=== PATIENT | male | born 1960 | race Caucasian/White ===

== ENCOUNTER 2019-06-21 14:32 | Emergency (ER) | payer OTHER ==
[2019-06-21] MEDS ORDERED: IOVERSOL 320 100 ML VIAL IVP ONE ×2 (14:38→15:48)
--- NOTE | 2019-06-21 14:43 | ED Physician Documentation ---
PD HPI FOCAL NEURO - Stated complaint Stated Complaint: CVA - History obtained from History obtained from: Patient (59-year-old gentleman with history of hypertension and hypercholesterolemia presents with symptoms starting abruptly a few minutes before 2 PM today associated symptoms include slurred speech and tingling on the right side of the body, mostly the arm and leg, also a mild to moderate left-sided headache. He has no history of stroke. He does take aspirin, baby aspirin daily. No other anticoagulants.) Review of Systems Ten Systems: 10 systems reviewed and negative Constitutional: denies: Fever, Chills Throat: denies: Dental pain / toothache, Sore throat Cardiac: denies: Chest pain / pressure, Palpitations PD PAST MEDICAL HISTORY - Allergies Allergies/Adverse Reactions: Allergies Allergy/AdvReac Type Severity Reaction Status Date / Time No Known Drug Allergies Allergy Verified 06/21/19 15:08 PD ED PE NORMAL - Vitals Vital signs reviewed: Yes - General General: Alert and oriented X 3, No acute distress - HEENT HEENT: PERRL, EOMI - Cardiac Cardiac: RRR, No murmur - Respiratory Respiratory: No respiratory distress, Clear bilaterally - Abdomen Abdomen: Soft, Non tender - Back Back: No CVA TTP, No spinal TTP - Derm Derm: Normal color, Warm and dry - Extremities Extremities: No edema, No calf tenderness / cord - Neuro Neuro: Alert and oriented X 3, Normal speech NIHSS - Time Time: 14:35 - Level of Consciousness Level of consciousness: (0) Alert, Keenly responsive LOC Questions: (0) Answers both Q's correct LOC Commands: (0) Performs both correctly - Gaze Best Gaze: (0) Normal - Visual Visual: (0) No loss - Facial Palsy Facial Palsy: (1) Minor paralysis (On the right) - Motor Arms (both separate) Motor Arm (right): (0) No drift Motor Arm (left): (0) No drift - Motor Legs (both separate) Motor Leg (right): (0) No drift Motor Leg (left): (0) No drift - Limb Ataxia Limb Ataxia: (0) Absent - Sensory Sensory: (0) Normal (He notes tingling on the right but sensation is symmetric.) - Best Language Best Language: (0) No aphasia - Dysarthria Dysarthria: (1) [id number] dysarthria (Mildly slurred speech) - Extinction and Inattention (formally neg Extinction and inattention: (0) No abnormality - Total Score/Results Total Score/Result: 2 Results - Vitals Vitals: Vital Signs - 24 hr 06/21/19 06/21/19 06/21/19 14:33 15:25 15:30 Heart Rate 88 59 L 54 L Respiratory 18 14 13 Rate Blood Pressure 183/108 H 167/96 H 160/74 H O2 Saturation 99 98 Oxygen O2 Source Room air - Labs Labs: Laboratory Tests 06/21/19 06/21/19 06/21/19 14:30 14:30 15:16 WBC 7.7 RBC 4.91 Hgb 16.4 Hct 47.0 MCV 95.7 H MCH 33.4 H MCHC 34.9 RDW 12.7 Plt Count 275 MPV 10.1 Neut # (Auto) 4.1 Lymph # (Auto) 2.3 [place] # (Auto) 0.9 Eos # (Auto) 0.3 Baso # (Auto) 0.1 Absolute Nucleated RBC 0.00 Nucleated RBC % 0.0 PT 11.4 INR 1.0 Sodium 138 Potassium 3.8 Chloride 102 Carbon Dioxide 30 Anion Gap 6.0 BUN 13 Creatinine 1.2 Estimated GFR (MDRD) 62 L Glucose 93 Calcium 9.3 Total Bilirubin 0.7 AST 30 ALT 40 Alkaline Phosphatase 75 Total Protein 7.9 Albumin 4.2 Globulin 3.7 Albumin/Globulin Ratio 1.1 Lipase 32 - Rads (name of study) CTH/CTA Head and neck Radiology: EMP read contemporaneously (CT of the head demonstrates no obvious acute stroke. CT angiography demonstrates normal vessels in the neck, there is some intracranial atherosclerosis but no large vessel occlusion.) PD MEDICAL DECISION MAKING - ED course ED course: On return from head CT I spoke with Dr. Joseph, stroke neurologist at [facility], stroke scale is pretty low but otherwise is a pretty low risk candidate for TPA and did recommend starting that process, needs a little blood pressure control first and was administered labetalol 20 mg IVP. After discussion with the patient and his significant other and discussion of the risks and benefits he consented to TPA. Of note without specific intervention i.e. before the labetalol was given, his blood pressure was now 140/100. TPA was mixed by pharmacy. Written consent was obtained. TPA bolus given at [address] Burkett to [facility] neuro ICU at 1535 pending bed availability. [place]ras were completed. He is stable for transport to a higher level of care given the complex needs of post TPA care. - Critical Care Time(min): 40 Time Includes: Direct patient care, Review records, Reassess patient, Document care, Coordinate care, Medical consult, Family consult for tx dec Data interpretation: Labs, Pulse ox Procedures included in critical care time: Peripheral IV Departure - Departure Disposition: 02 Transfer Acute Care Hosp Clinical Impression: Cerebrovascular accident (CVA) Qualifiers: CVA mechanism: unspecified Qualified Code(s): I63.9 - Cerebral infarction, unspecified Condition: Serious
[2019-06-21] MEDS ORDERED: LABETALOL 20 MG/4 ML SYRINGE IVP ONE (14:54)
[2019-06-21] MEDS ORDERED: ALTEPLASE 81 MG in WATER FOR INJECTION,STERILE 81 ML IV STA (14:54)
[2019-06-21 14:56] LABS: BASOPHILS # (AUTO) 0.1 10^3/uL (0.0-0.1); BASOPHILS % (AUTO) 0.6 %; EOSINOPHILS # (AUTO) 0.3 10^3/uL (0.0-0.7); EOSINOPHILS % (AUTO) 3.9 %; HGB - HEMOGLOBIN 16.4 g/dL (14.0-18.0); LYMPHOCYTES # (AUTO) 2.3 10^3/uL (1.5-3.5); LYMPHOCYTES % (AUTO) 29.7 %; MEAN CORPUSCULAR HEMOGLOBIN 33.4 pg (27.0-31.0); MEAN CORPUSCULAR HGB CONC 34.9 g/dL (32.0-36.0); MEAN CORPUSCULAR VOLUME 95.7 fL (80.0-94.0); MEAN PLATELET VOLUME 10.1 fL (7.4-11.4); MONOCYTES # (AUTO) 0.9 10^3/uL (0.0-1.0); MONOCYTES % (AUTO) 12.1 %; NEUTROPHILS # (AUTO) 4.1 10^3/uL (1.5-6.6); NEUTROPHILS % (AUTO) 53.4 %; PLT - PLATELET COUNT 275 10^3/uL (130-450); RED BLOOD COUNT 4.91 10^6/uL (4.70-6.10); RED CELL DISTRIBUTION WIDTH 12.7 % (12.0-15.0); WHITE BLOOD COUNT 7.7 x10^3/uL (4.8-10.8)
[2019-06-21] MEDS ORDERED: ALTEPLASE 100 MG VIAL IV STA (15:02)
[2019-06-21 15:11] LABS: ALBUMIN 4.2 g/dL (3.2-5.5); ALBUMIN/GLOBULIN RATIO 1.1 (1.0-2.2); BILIRUBIN,TOTAL 0.7 mg/dL (0.2-1.0); CREATININE 1.2 mg/dL (0.6-1.2); TOTAL PROTEIN 7.9 g/dL (6.7-8.2)
--- NOTE | 2019-06-21 15:25 | CT Report ---
Reason: stroke Procedure Date: 06/21/2019 Accession Number: [id number] / [id number] Procedure: CT - Head W/O Stroke Protocol CPT Code: Preliminary Report FULL RESULT: EXAM: CT HEAD EXAM DATE: 06/21/2019 02:50 PM. CLINICAL HISTORY: Stroke. COMPARISON: Accompanying CT angiogram head and neck. TECHNIQUE: Multiaxial CT images were obtained from the foramen magnum to the vertex. Reformats: Sagittal and coronal. IV contrast: None. In accordance with CT protocol optimization, one or more of the following dose reduction techniques were utilized for this exam: automated exposure control, adjustment of mA and/or KV based on patient size, or use of iterative reconstructive technique. Findings: Relevant images are indicated (image number, series number). There is no hemorrhage, mass or midline shift. Minimal brain atrophy present. Mild/moderate scattered dense white matter disease appears present. No acute arterial thrombosis of the major arteries. Basal cisterns are patent. Paranasal sinuses, mastoid air cells are clear. Skull base intact, calvarium intact. Impressions: 1. No acute findings. ASPECTS Score equals 10. 2. Mild/moderate scattered dense white matter disease. 3. Minimal brain atrophy. RADIA The critical test notification system was initiated by Dr. Lalito Parrish at 03:19 PM on 06/21/2019. The above critical test findings were discussed with Juan Velez by Dr. Lalito Parrish at 03:22 PM on 06/21/2019.
[2019-06-21 15:36] LABS: PT - PROTHROMBIN TIME 11.4 secs (9.9-12.6)
--- NOTE | 2019-06-21 15:37 | CT Report ---
Reason: R facial droop, slurred speech Procedure Date: 06/21/2019 Accession Number: [id number] / [id number] Procedure: CT - ANGIO NECK W CPT Code: Final Report FULL RESULT: EXAM: CT ANGIOGRAM HEAD AND NECK. CT SCAN HEAD WITH CONTRAST. EXAM DATE: 06/21/2019 02:54 PM. CLINICAL HISTORY: 59-year-old with right-sided facial droop and slurred speech. Evaluate for intracranial pathology or vascular pathology. COMPARISON: Noncontrast CT head 06/21/2019. TECHNIQUE: Routine axial helical CTA imaging was performed from the aortic arch through the [place]. Routine axial CT imaging of the head was performed following contrast administration. Reconstructions: Routine multiplanar 3D MIP reconstructions. IV contrast: Optiray 320 80 mL. NASCET Criteria are used for stenosis measurements. In accordance with CT protocol optimization, one or more of the following dose reduction techniques were utilized for this exam: automated exposure control, adjustment of mA and/or KV based on patient size, or use of iterative reconstructive technique. FINDINGS: CT SCAN HEAD: Parenchyma: No acute parenchymal hemorrhage, mass, or midline shift. There is mild to moderate bilateral areas of white matter hypoattenuation seen that are age-indeterminate, but appear chronic. There is no convincing CT evidence of acute infarct. No abnormal postcontrast enhancement. Extra-axial Spaces: Normal for age. No subdural or epidural collections identified. Ventricles: Normal in size and position. Sinuses and Orbits: Mild mucosal thickening in the maxillary sinuses and the left sphenoid sinus. Mastoid air cells and middle ear cavities appear clear. Bones: No evidence of fracture or calvarial defect. Other: Vascular calcifications of the cavernous ICA segments. CT ANGIOGRAM HEAD AND NECK: There is atherosclerotic plaque involving the aortic arch with no significant stenosis. Normal three vessel takeoff. The visualized subclavian arteries appear normal. RIGHT: Common Carotid Artery: Patent without significant stenosis. Carotid Bulb: There is minimal atherosclerotic plaque at the carotid bifurcation. Stenosis at the bifurcation by NASCET criteria: No significant stenosis. Internal Carotid Artery: Tortuosity of the cervical ICA with no high-grade stenosis or definite dissection seen. There is atherosclerotic plaque involving the cavernous ICA segment with no high-grade stenosis seen. No evidence of aneurysm along the intracranial ICA. External Carotid Artery: Unremarkable. Vertebral Artery: Patent without significant stenosis. No evidence of dissection. No aneurysm. Anterior Cerebral Artery: Patent without significant stenosis, aneurysm, or vascular malformation. Middle Cerebral Artery: Patent without significant stenosis, aneurysm, or vascular malformation. Posterior Cerebral Artery: There is mild stenosis of the proximal P1 segment of the right A[employer]AUT[employer] ENGINEERING TEACHER (series 2, image 126). Distal A[employer]ING TE[employer]ER branches are patent. No aneurysm. Posterior Communicating Artery: Patent. No aneurysm. LEFT: Common Carotid Artery: Patent without significant stenosis. Carotid Bulb: There is minimal atherosclerotic plaque at the carotid bifurcation. Stenosis at the bifurcation by NASCET criteria: No significant stenosis. Internal Carotid Artery: Tortuosity of the cervical ICA with no high-grade stenosis or definite dissection seen. There is atherosclerotic plaque above the cavernous ICA segment with no high-grade stenosis seen. No evidence of aneurysm along the intracranial ICA. External Carotid Artery: Unremarkable. Vertebral Artery: Patent without significant stenosis. No evidence of dissection. No aneurysm. Anterior Cerebral Artery: Patent without significant stenosis, aneurysm, or vascular malformation. Middle Cerebral Artery: Patent without significant stenosis, aneurysm, or vascular malformation. Posterior Cerebral Artery: The P1 and P2 segments appear normal. There is a 4 mm segment of moderate to severe stenosis of the superior P3 segment of the left [employer]INEERING TEACHER. There is a 4 mm segment of moderate stenosis of the distal inferior P3 segment of the left [employer] ENGINEERING TEACHER. No aneurysm. Posterior Communicating Artery: Patent. No aneurysm. CENTRAL: Anterior Communicating Artery: Patent. No aneurysm. Basilar Artery: The basilar artery is patent. There is 2 mm segment of moderate to severe stenosis of the origin of the right superior cerebellar artery. There is focal moderate stenosis of the origin of the left superior cerebellar artery. No aneurysm. DURAL VENOUS SINUSES AND MAJOR CENTRAL VEINS: Patent. OTHER: Punctate calcification seen within the tonsillar crypts. Otherwise, the visualized pharynx and larynx appear normal. The major salivary glands appear normal. The visualized thyroid appears normal. No cervical lymphadenopathy. No necrotic lymph nodes. Soft tissues of the neck appear normal. Dependent atelectatic changes. Postsurgical changes C5-C6 posterior spinal instrumented fusion and anterior cervical disk fusion with C5-C6 diskectomy with interbody fusion graft placement. No acute fracture or traumatic subluxation. Multilevel degenerative changes. No suspicious osseous lesion seen. IMPRESSION: CT SCAN HEAD: 1. No definite acute infarct seen. If there is clinical concern for acute stroke or if symptoms persist an MR brain could be considered to evaluate for small or subtle pathology. 2. No acute intracranial hemorrhage, mass, hydrocephalus, or midline shift. 3. Mild to moderate white matter changes that appear chronic suggesting potential sequela of chronic small vessel ischemic disease. CT ANGIOGRAM NECK: 1. Normal CTA of the extracranial circulation. No significant atherosclerotic change or stenosis. No dissection. CT ANGIOGRAM HEAD: 1. No large vessel occlusion. 2. There is evidence of intracranial atherosclerosis with areas of high-grade stenosis involving the origins of the right superior cerebral artery, left superior cerebellar artery, P1 segment of the right [employer] ENGINEERING TEACHER, and P3 segments of the left [employer] ENGINEERING TEACHER, as detailed above. 3. No aneurysm. RADIA The call report notification system was initiated by Dr. Blane Jeff at 03:35 PM on 06/21/2019. The above call report findings were discussed with Juan Velez by Dr. Blane Jeff at 03:42 PM on 06/21/2019.
--- NOTE | 2019-06-21 15:37 | CT Report ---
Reason: R facial droop, slurred speech Procedure Date: 06/21/2019 Accession Number: [id number] / [id number] Procedure: CT - ANGIO HEAD W/WO CPT Code: Final Report FULL RESULT: EXAM: CT ANGIOGRAM HEAD AND NECK. CT SCAN HEAD WITH CONTRAST. EXAM DATE: 06/21/2019 02:54 PM. CLINICAL HISTORY: 59-year-old with right-sided facial droop and slurred speech. Evaluate for intracranial pathology or vascular pathology. COMPARISON: Noncontrast CT head 06/21/2019. TECHNIQUE: Routine axial helical CTA imaging was performed from the aortic arch through the [place] of [place]. Routine axial CT imaging of the head was performed following contrast administration. Reconstructions: Routine multiplanar 3D MIP reconstructions. IV contrast: Optiray 320 80 mL. NASCET Criteria are used for stenosis measurements. In accordance with CT protocol optimization, one or more of the following dose reduction techniques were utilized for this exam: automated exposure control, adjustment of mA and/or KV based on patient size, or use of iterative reconstructive technique. FINDINGS: CT SCAN HEAD: Parenchyma: No acute parenchymal hemorrhage, mass, or midline shift. There is mild to moderate bilateral areas of white matter hypoattenuation seen that are age-indeterminate, but appear chronic. There is no convincing CT evidence of acute infarct. No abnormal postcontrast enhancement. Extra-axial Spaces: Normal for age. No subdural or epidural collections identified. Ventricles: Normal in size and position. Sinuses and Orbits: Mild mucosal thickening in the maxillary sinuses and the left sphenoid sinus. Mastoid air cells and middle ear cavities appear clear. Bones: No evidence of fracture or calvarial defect. Other: Vascular calcifications of the cavernous ICA segments. CT ANGIOGRAM HEAD AND NECK: There is atherosclerotic plaque involving the aortic arch with no significant stenosis. Normal three vessel takeoff. The visualized subclavian arteries appear normal. RIGHT: Common Carotid Artery: Patent without significant stenosis. Carotid Bulb: There is minimal atherosclerotic plaque at the carotid bifurcation. Stenosis at the bifurcation by NASCET criteria: No significant stenosis. Internal Carotid Artery: Tortuosity of the cervical ICA with no high-grade stenosis or definite dissection seen. There is atherosclerotic plaque involving the cavernous ICA segment with no high-grade stenosis seen. No evidence of aneurysm along the intracranial ICA. External Carotid Artery: Unremarkable. Vertebral Artery: Patent without significant stenosis. No evidence of dissection. No aneurysm. Anterior Cerebral Artery: Patent without significant stenosis, aneurysm, or vascular malformation. Middle Cerebral Artery: Patent without significant stenosis, aneurysm, or vascular malformation. Posterior Cerebral Artery: There is mild stenosis of the proximal P1 segment of the right PILL PACKER (series 2, image 126). Distal PILL PACKER branches are patent. No aneurysm. Posterior Communicating Artery: Patent. No aneurysm. LEFT: Common Carotid Artery: Patent without significant stenosis. Carotid Bulb: There is minimal atherosclerotic plaque at the carotid bifurcation. Stenosis at the bifurcation by NASCET criteria: No significant stenosis. Internal Carotid Artery: Tortuosity of the cervical ICA with no high-grade stenosis or definite dissection seen. There is atherosclerotic plaque above the cavernous ICA segment with no high-grade stenosis seen. No evidence of aneurysm along the intracranial ICA. External Carotid Artery: Unremarkable. Vertebral Artery: Patent without significant stenosis. No evidence of dissection. No aneurysm. Anterior Cerebral Artery: Patent without significant stenosis, aneurysm, or vascular malformation. Middle Cerebral Artery: Patent without significant stenosis, aneurysm, or vascular malformation. Posterior Cerebral Artery: The P1 and P2 segments appear normal. There is a 4 mm segment of moderate to severe stenosis of the superior P3 segment of the left PILL PACKER. There is a 4 mm segment of moderate stenosis of the distal inferior P3 segment of the left PILL PACKER. No aneurysm. Posterior Communicating Artery: Patent. No aneurysm. CENTRAL: Anterior Communicating Artery: Patent. No aneurysm. Basilar Artery: The basilar artery is patent. There is 2 mm segment of moderate to severe stenosis of the origin of the right superior cerebellar artery. There is focal moderate stenosis of the origin of the left superior cerebellar artery. No aneurysm. DURAL VENOUS SINUSES AND MAJOR CENTRAL VEINS: Patent. OTHER: Punctate calcification seen within the tonsillar crypts. Otherwise, the visualized pharynx and larynx appear normal. The major salivary glands appear normal. The visualized thyroid appears normal. No cervical lymphadenopathy. No necrotic lymph nodes. Soft tissues of the neck appear normal. Dependent atelectatic changes. Postsurgical changes C5-C6 posterior spinal instrumented fusion and anterior cervical disk fusion with C5-C6 diskectomy with interbody fusion graft placement. No acute fracture or traumatic subluxation. Multilevel degenerative changes. No suspicious osseous lesion seen. IMPRESSION: CT SCAN HEAD: 1. No definite acute infarct seen. If there is clinical concern for acute stroke or if symptoms persist an MR brain could be considered to evaluate for small or subtle pathology. 2. No acute intracranial hemorrhage, mass, hydrocephalus, or midline shift. 3. Mild to moderate white matter changes that appear chronic suggesting potential sequela of chronic small vessel ischemic disease. CT ANGIOGRAM NECK: 1. Normal CTA of the extracranial circulation. No significant atherosclerotic change or stenosis. No dissection. CT ANGIOGRAM HEAD: 1. No large vessel occlusion. 2. There is evidence of intracranial atherosclerosis with areas of high-grade stenosis involving the origins of the right superior cerebral artery, left superior cerebellar artery, P1 segment of the right PILL PACKER, and P3 segments of the left PILL PACKER, as detailed above. 3. No aneurysm. RADIA The call report notification system was initiated by Dr. Blane Jeff at 03:35 PM on 06/21/2019. The above call report findings were discussed with Juan Velez by Dr. Blane Jeff at 03:42 PM on 06/21/2019.
[2019-06-21 15:38] LABS: CALCIUM 9.3 mg/dL (8.5-10.3)
[2019-06-21 17:15] VITALS: BP 153/95
== END 2019-06-21 17:02 | disposition short-term general hospital (02) ==
LOC: ED 14:32
DX: I63.9 Cerebral infarction, unspecified (principal); I10 Essential (primary) hypertension; E78.00 Pure hypercholesterolemia, unspecified; Z79.82 Long term (current) use of aspirin
CPT/HCPCS: 36415; 37195; 70496; 70498; 80053; 83690; 85025; 85610; 96365; 99285; 99291; J2997; Q9967; 70450

== ENCOUNTER 2019-06-25 21:39 | Outpatient (CLI) | payer OTHER | END 2019-06-25 21:40 | disposition critical access hospital (66) | LOC: EMS 21:39 | PROVIDERS: ATTEND Surgery | DX: G81.91 Hemiplegia, unspecified affecting right dominant side (principal); R53.83 Other fatigue; R47.81 Slurred speech | CPT/HCPCS: A0425; A0427 ==

== ENCOUNTER 2019-06-25 21:59 | Observation (INO) | payer OTHER ==
[2019-06-25] MEDS ORDERED: SODIUM CHLORIDE 0.9% 1,000 ML IV ONE ×2 (22:23→23:13)
--- NOTE | 2019-06-25 22:27 | ED Physician Documentation ---
PD HPI FOCAL NEURO - Stated complaint Stated Complaint: R SIDE NUMBNESS - Chief complaint Chief Complaint: Neuro - History obtained from History obtained from: Patient, Family, EMS - History of Present Illness Timing - onset: Today Timing - duration: Minutes Timing - details: Abrupt onset, Now resolved Severity of deficit: Moderate Weakness: Hand, Leg, Foot, Right Numbness: Hand, Leg, Foot, Right Contributing factors: positive: Other (not drinking much fluids) Baseline status: positive: A&OX3, ambulatory, indep Similar symptoms before: Diagnosis (CVA with stuttering lacunar infarct) Recently seen: Emergency Dept, Transferred - Additional information Additional information: 59-year-old male who was recently transferred from [facility] to [facility] for CVA and received TPA has been discharged with a diagnosis of transient lacunar. Tonight he was eating dinner when he began to have some trouble holding his fork and he then got up from the table went into his room and laid down and he developed numbness and tingling to his right foot and hand as well as clumsiness and weakness. He had some difficulty with speech as well these are all the similar symptoms she had previously with his lacunar infarct.He has resolved his symptoms in route to the hospital. He states that today he did not take it easy went and did his usual things after he got back from the hospital. He states that this morning he was walking better than when he left the hospital. He indicates he feels nearly completely recovered at the time of initial evaluation. He has had some dysarthria that has been present since the episode and seem worse if he is laying flat. He acknowledges that he does not drink enough fluids and he has had afib once from dehydration. Review of Systems Constitutional: denies: Fever, Chills, Myalgias Eyes: denies: Decreased vision Ears: denies: Ear pain Nose: denies: Rhinorrhea / runny nose, Congestion Throat: denies: Sore throat Cardiac: denies: Chest pain / pressure, Palpitations Respiratory: denies: Dyspnea, Cough GI: denies: Abdominal Pain, Nausea, Vomiting : denies: Dysuria Skin: denies: Rash Musculoskeletal: denies: Neck pain, Back pain, Extremity pain Neurologic: reports: Focal weakness, Numbness, Difficulty speaking. denies: Generalized weakness, Confused, Altered mental status, Headache, Head injury, LOC PD PAST MEDICAL HISTORY - Past Medical History Past Medical History: Yes Cardiovascular: Hypertension, High cholesterol Neuro: Other Other Past Medical History: stuttering lacunar syndrome - Past Surgical History Past Surgical History: Yes Ortho: Spine surgery, Other - Present Medications Home Medications: Ambulatory Orders Medication Instructions Recorded Confirmed Aspirin 1 tab 06/25/19 Atorvastatin [Lipitor] 40 mg 06/25/19 Clopidogrel [Plavix] 1 tab 06/25/19 - Allergies Allergies/Adverse Reactions: Allergies Allergy/AdvReac Type Severity Reaction Status Date / Time No Known Drug Allergies Allergy Verified 06/21/19 15:08 - Social History Does the pt smoke?: No Smoking Status: Never smoker PD ED PE NORMAL - Vitals Vital signs reviewed: Yes (hpyertensive moderate) - General General: Alert and oriented X 3, No acute distress, Well developed/nourished - HEENT HEENT: Atraumatic, PERRL, EOMI - Neck Neck: Supple, no meningeal sign, No bony TTP - Cardiac Cardiac: RRR, No murmur - Respiratory Respiratory: No respiratory distress, Clear bilaterally - Abdomen Abdomen: Normal bowel sounds, Soft, Non tender, Non distended, No organomegaly - Back Back: No CVA TTP, No spinal TTP - Derm Derm: Normal color, Warm and dry, No rash - Extremities Extremities: No deformity, No edema - Neuro Neuro: Alert and oriented X 3, cotton weigher 2-12 intact, No motor deficit, No sensory deficit, Other (speech is mildly dysarthric) Eye Opening: Spontaneous Motor: Obeys Commands Verbal: Oriented GCS Score: 15 - Psych Psych: Normal mood, Normal affect NIHSS - Level of Consciousness Level of consciousness: (0) Alert, Keenly responsive LOC Questions: (0) Answers both Q's correct LOC Commands: (0) Performs both correctly - Gaze Best Gaze: (0) Normal - Visual Visual: (0) No loss - Facial Palsy Facial Palsy: (0) Normal, symmetrical movement - Motor Arms (both separate) Motor Arm (right): (0) No drift Motor Arm (left): (0) No drift - Motor Legs (both separate) Motor Leg (right): (0) No drift Motor Leg (left): (0) No drift - Limb Ataxia Limb Ataxia: (0) Absent - Sensory Sensory: (0) Normal - Best Language Best Language: (0) No aphasia - Dysarthria Dysarthria: (1) [id number] dysarthria - Extinction and Inattention (formally neg Extinction and inattention: (0) No abnormality - Total Score/Results Total Score/Result: 1 Results - Vitals Vitals: Vital Signs - 24 hr 06/25/19 06/26/19 22:00 00:22 Temperature 36.6 C Heart Rate 57 L 58 L Respiratory 18 21 Rate Blood Pressure 171/99 H 152/87 H O2 Saturation 96 96 Oxygen O2 Source Room air - EKG (time done) 2205 Rate: Rate (enter#) (56) Rhythm: NSR [place]: LAD (borderline) Intervals: Prolonged CA (borderline) Ischemia: Other (T's are almost flat) Compare to prior EKG: Old EKG unavailable Computer interpretation: Agree with computer - Labs Labs: Laboratory Tests 06/25/19 06/25/19 06/25/19 22:56 23:07 23:07 WBC 11.0 H RBC 4.75 Hgb 15.6 Hct 44.8 MCV 94.3 H MCH 32.8 H MCHC 34.8 RDW 12.4 Plt Count 241 MPV 9.6 Neut # (Auto) 8.6 H Lymph # (Auto) 1.2 L Logan # (Auto) 0.8 Eos # (Auto) 0.3 Baso # (Auto) 0.0 Absolute Nucleated RBC 0.00 Nucleated RBC % 0.0 PT 11.9 INR 1.0 Sodium Potassium Chloride Carbon Dioxide Anion Gap BUN Creatinine Estimated GFR (MDRD) Glucose Calcium Total Bilirubin AST ALT Alkaline Phosphatase Total Protein Albumin Globulin Albumin/Globulin Ratio Lipase Urine Color YELLOW Urine Clarity CLEAR Urine pH 6.0 Ur Specific [place] 1.020 Urine Protein NEGATIVE Urine Glucose (UA) NEGATIVE Urine Ketones NEGATIVE Urine Occult Blood TRACE-INTA Urine Nitrite NEGATIVE Urine Bilirubin NEGATIVE Urine Urobilinogen 0.2 (NORMAL) Ur Leukocyte Esterase NEGATIVE Ur Microscopic Review NOT INDICATED Urine Culture Comments NOT INDICATED 06/25/19 23:07 WBC RBC Hgb Hct MCV MCH MCHC RDW Plt Count MPV Neut # (Auto) Lymph # (Auto) Logan # (Auto) Eos # (Auto) Baso # (Auto) Absolute Nucleated RBC Nucleated RBC % PT INR Sodium 139 Potassium 3.8 Chloride 106 Carbon Dioxide 26 Anion Gap 7.0 BUN 23 H Creatinine 1.1 Estimated GFR (MDRD) 68 L Glucose 121 H Calcium 9.4 Total Bilirubin 0.7 AST 46 H ALT 51 Alkaline Phosphatase 65 Total Protein 7.5 Albumin 4.1 Globulin 3.4 Albumin/Globulin Ratio 1.2 Lipase 33 Urine Color Urine Clarity Urine pH Ur Specific [place] Urine Protein Urine Glucose (UA) Urine Ketones Urine Occult Blood Urine Nitrite Urine Bilirubin Urine Urobilinogen Ur Leukocyte Esterase Ur Microscopic Review Urine Culture Comments - Rads (name of study) CT head w/o Radiology: Prelim report reviewed (Impression: No acute or focal intracranial abnormality. Moderate includes ataxia who is older you of your neck), EMP read indepedently, See rad report Procedures - IVC sono (time) 2220 Bedside IVC sono: IVC measures (cm) (0.93), Dehydration (est 1-2 liter deficit) 2355 Bedside IVC sono: IVC measures (cm) (1.22), Dehydration (est 1 liter deficit) PD MEDICAL DECISION MAKING - ED course Complexity details: reviewed old records, reviewed results, re-evaluated patient, considered differential, d/w patient, d/w family ED course: 59-year-old male with stuttering lacunar infarct has developed symptoms again this evening. He had symptoms under the circumstance of eating dinner and he was found to be dehydrated on interrogation of the inferior vena cava. Here in the emerge department his symptoms have resolved and we have hydrated him with 2 L of saline. His case was discussed with the on-call neurologist Nguyen Rose at [facility] and she recommends admission to observation overnight and she indicates that she would not make any significant changes to the patient's medications and she would encourage hydration. Departure - Departure Disposition: ED Place in Observation Clinical Impression: TIA (transient ischemic attack) Condition: Stable Discharge Date/Time: 06/26/19 02:41
--- NOTE | 2019-06-25 22:53 | CT Report ---
Reason: transient right sided weakness Procedure Date: 06/25/2019 Accession Number: [id number] / [id number] Procedure: CT - HEAD WO CPT Code: Final Report FULL RESULT: EXAM: CT HEAD EXAM DATE: 06/25/2019 10:41 PM. CLINICAL HISTORY: Transient right sided weakness. COMPARISON: CT ANGIOGRAM HEAD NECK ACUTE STROKE 06/23/2019 9:39 AM MRI BRAIN WO CONTRAST 06/23/2019 8:51 AM. TECHNIQUE: Multiaxial CT images were obtained from the foramen magnum to the vertex. Reformats: Sagittal and coronal. IV contrast: None. In accordance with CT protocol optimization, one or more of the following dose reduction techniques were utilized for this exam: automated exposure control, adjustment of mA and/or KV based on patient size, or use of iterative reconstructive technique. FINDINGS: Parenchyma: No intraparenchymal hemorrhage. No evidence of mass, midline shift, or CT findings of infarction. Shah-white differentiation is distinct. Extraaxial Spaces: Normal for age. No subdural or epidural collections identified. Ventricles: Normal in size and position. Sinuses and Orbits: Imaged paranasal sinuses, orbits, and mastoids show no significant abnormality. Bones: No evidence of fracture or calvarial defect. Other: None. IMPRESSION: No acute or focal intracranial abnormality. RADIA
[2019-06-25 23:18] LABS: BASOPHILS % (AUTO) 0.3 %; EOSINOPHILS # (AUTO) 0.3 10^3/uL (0.0-0.7); EOSINOPHILS % (AUTO) 2.6 %; HGB - HEMOGLOBIN 15.6 g/dL (14.0-18.0); LYMPHOCYTES # (AUTO) 1.2 10^3/uL (1.5-3.5); MEAN CORPUSCULAR HEMOGLOBIN 32.8 pg (27.0-31.0); MEAN CORPUSCULAR HGB CONC 34.8 g/dL (32.0-36.0); MEAN CORPUSCULAR VOLUME 94.3 fL (80.0-94.0); MEAN PLATELET VOLUME 9.6 fL (7.4-11.4); MONOCYTES # (AUTO) 0.8 10^3/uL (0.0-1.0); MONOCYTES % (AUTO) 7.7 %; NEUTROPHILS # (AUTO) 8.6 10^3/uL (1.5-6.6); NEUTROPHILS % (AUTO) 77.9 %; PLT - PLATELET COUNT 241 10^3/uL (130-450); RED BLOOD COUNT 4.75 10^6/uL (4.70-6.10); RED CELL DISTRIBUTION WIDTH 12.4 % (12.0-15.0)
[2019-06-25 23:24] LABS: PT - PROTHROMBIN TIME 11.9 secs (9.9-12.6)
[2019-06-25 23:24] LABS: BILIRUBIN,URINE NEGATIVE (NEGATIVE); GLUCOSE, URINE (UA) NEGATIVE (NEGATIVE); KETONES,URINE (UA) NEGATIVE (NEGATIVE); LEUKOCYTE ESTERASE, URINE NEGATIVE (NEGATIVE); NITRITE,URINE NEGATIVE (NEGATIVE); OCCULT BLOOD,URINE TRACE-INTA (NEGATIVE); PROTEIN,URINE NEGATIVE (NEGATIVE); UROBILINOGEN,URINE 0.2 (NORMAL) E.U./dL (NORMAL)
[2019-06-25 23:25] LABS: CLARITY,URINE CLEAR (CLEAR)
[2019-06-25 23:26] LABS: ALBUMIN 4.1 g/dL (3.2-5.5); ALBUMIN/GLOBULIN RATIO 1.2 (1.0-2.2); BILIRUBIN,TOTAL 0.7 mg/dL (0.2-1.0); CALCIUM 9.4 mg/dL (8.5-10.3); CREATININE 1.1 mg/dL (0.6-1.2); TOTAL PROTEIN 7.5 g/dL (6.7-8.2)
[2019-06-26] MEDS ORDERED: SODIUM CHLORIDE FLUSH 0.9% 10 ML SYRINGE IVP PRN (02:15)
--- NOTE | 2019-06-26 02:18 | HISTORY & PHYSICAL EXAMINATION ---
Chief Complaint - Chief Complaint Chief Complaint: right sided weakness and numbness History of Present Illness - Admitted From Admitted From:: [facility] - History Obtained From Records Reviewed: yes History obtained from: patient and significant other - History of Present Illness HPI Comment/Other: Patient is a 59 y/o male with supposed Hx of paroxysmal Atrial fibrillation, hypertension and hyperlipidemia who presented to the ED with complain of right- sided numbness, weakness and dysarthria. This started around 7pm on 06/25/19 while they were having dinner. Just prior to dinner he noticed he was wobbly on his feet. Then at dinner he was having some difficulty holding his fork. He decided to go to bed after dinner and that was when he noticed the numbness and weakness was more prominent. Then he was having difficulty speaking. He reports getting emotional at this point because he felt helpless and like he was going to . His significant other called EMS. By the time EMS arrived his symptoms had improved somewhat. By the time the ambulance arrived the hospital he was close to his baseline. He was able to stand/ bear weight and walk un-aided. However he was slightly wobbly on his feet. He had presented to the ED on 06/21/19 with similar symptoms. At that time his symptoms had persisted for over an hour. After discussing with [facility] neurology, he was administered TPA and flown to [facility]. He was admitted to the ICU at [facility]. The following day he was down-graded and transferred out of the ICU. He reports experiencing two episodes of similar symptoms as described above while admitted at [facility]. He underwent 2 brain MRI's, 2 CTA of the head, a CTA neck and a TTE which showed a LVEF of 58%, normal left and right ventricular size and function. The images were largely unremarkable for an acute stroke, except for moderate dense scattered white matter disease most likely related to chronic small vessel ischemic disease. 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 Plan was for follow up with his PCP in 1 week and neurology in 2-3 weeks. At bedside he has slight residual weakness on the right side and has slight difficulty with sflucd-lk-bdac test on the right. However he adds that this is close to his baseline upon discharge from [facility]. He denied chest pain, dyspnea, abd pain, n/v/d, fever chills, headache, dizziness or double vision. Dr Nguyen Rose (neurologist) at [facility] was consulted by the ED physician and she advised observing the patient. He is being admitted for observation based on neurology's recommendation. History - Past Medical History Cardiovascular: reports: Hypertension, High cholesterol, Atrial fibrillation (Paroxysmal) Neuro: reports: Other Other Past Medical History: stuttering lacunar syndrome - Past Surgical History Ortho: reports: Spine surgery, Other - Family & Social History Family History Comment/Other: mother: CVA, hypertension. father: CHF, hypertension Living arrangement: At home Social History Notes: He denies tobacco or alcohol use. He uses marijuana. - POLST Patient has POLST: No POLST Status: Full Code Meds/Allgy - Home Medications Home Medications: Ambulatory Orders Medication Instructions Recorded Confirmed Aspirin 1 tab 06/25/19 Atorvastatin [Lipitor] 40 mg 06/25/19 Clopidogrel [Plavix] 1 tab 06/25/19 - Allergies Allergies/Adverse Reactions: Allergies Allergy/AdvReac Type Severity Reaction Status Date / Time No Known Drug Allergies Allergy Verified 06/21/19 15:08 Review of Systems - Constitutional Constitutional: denies: Fatigue, Fever, Chills, Poor appetite - Eyes Eyes: reports: Corrective lenses (contacts). denies: Pain, Vision loss, Dipolpia - Ears, Nose & Throat Ears, Nose & Throat: denies: Vertigo, Sore throat, Hoarseness - Cardiovascular Cariovascular: denies: Irregular heart rate, Chest pain, Edema, Lightheadedness, Syncope, Exertional dyspnea - Respiratory Respiratory: denies: Cough, Wheezing, Orthopnea, SOB at rest, SOB with exertion - Gastrointestinal Gastrointestinal: denies: Abdominal pain, Abdominal distention, Constipation, Diarrhea, Nausea, Vomiting - Genitourinary Genitourinary: denies: Dysuria, Frequency, Urgency, Hematuria - Musculoskeletal Musculoskeletal: denies: Muscle pain, Back pain, Gout - Integumentary Integumentary: denies: Rash, Pruritis, Lesions - Neurological Neurological: reports: Focal weakness (right sided), Numbness (right-sided), Slurred speech. denies: Headache, Dizziness - Psychiatric Psychiatric: reports: Anxiety. denies: Depression - Endocrine Endocrine: denies: Polyuria, Polydypsia - Hematologic/Lymphatic Hematologic/Lymphatic: denies: Anemia, Bruising, Petechiae Prior Level of Functionality: He is otherwise independent of activities of daily living Exam - Vital Signs Vital Signs: Vital Signs x48h Temp Pulse Resp BP Pulse Ox 06/26/19 00:22 58 L 21 152/87 H 96 06/25/19 22:00 36.6 C 57 L 18 171/99 H 96 - Physical Exam General Appearance: positive: No acute distress, Alert Eyes Bilateral: positive: PERRL, EOMI ENT: positive: ENT inspection nml Neck: positive: Nml inspection, No JVD, Trachea midline Respiratory: positive: Chest non-tender, No respiratory distress, Breath sounds nml. negative: Wheezes, Rales, Rhonchi Cardiovascular: positive: Regular rate & rhythm, No murmur Abdomen: positive: Non-tender, No organomegaly, Nml bowel sounds, No distention. negative: Guarding, Rebound Back: positive: Nml inspection Skin: positive: Color nml, No rash, Warm Extremities: positive: Non-tender, Full ROM, Nml appearance, No pedal edema Neurologic/Psychiatric: positive: Oriented x3, Sensation nml, Mood/affect nml, Weakness (slight weakness to right hand barrel plater), Facial droop (slight right-side facial droop) Conclusion/Plan - Problem List (1) TIA (transient ischemic attack) Conclusion/Plan: Neuro checks qshift Resume plavix, aspirin, atorvastatin and atenolol If symptoms return and persist, will consult [facility] neurology. (2) Hypertension Conclusion/Plan: Resume atenolol (3) Hyperlipidemia Conclusion/Plan: On atorvastatin - Lab Results Fish Bones: 06/26/19 04:58 06/26/19 04:58 Core Measures - Anticipated LOS I expect patient to be DC'd or transferred within 96 hours.: Yes - DVT/VTE - Prophylaxis VTE/DVT Device ordered at admit?: Yes
[2019-06-26 05:38] LABS: BASOPHILS % (AUTO) 0.4 %; EOSINOPHILS # (AUTO) 0.2 10^3/uL (0.0-0.7); EOSINOPHILS % (AUTO) 3.3 %; HGB - HEMOGLOBIN 14.5 g/dL (14.0-18.0); LYMPHOCYTES # (AUTO) 1.8 10^3/uL (1.5-3.5); LYMPHOCYTES % (AUTO) 24.5 %; MEAN CORPUSCULAR HEMOGLOBIN 32.4 pg (27.0-31.0); MEAN CORPUSCULAR HGB CONC 34.1 g/dL (32.0-36.0); MEAN CORPUSCULAR VOLUME 94.9 fL (80.0-94.0); MEAN PLATELET VOLUME 9.8 fL (7.4-11.4); MONOCYTES # (AUTO) 0.8 10^3/uL (0.0-1.0); MONOCYTES % (AUTO) 10.5 %; NEUTROPHILS # (AUTO) 4.5 10^3/uL (1.5-6.6); PLT - PLATELET COUNT 232 10^3/uL (130-450); RED BLOOD COUNT 4.48 10^6/uL (4.70-6.10); RED CELL DISTRIBUTION WIDTH 12.4 % (12.0-15.0); WHITE BLOOD COUNT 7.3 x10^3/uL (4.8-10.8)
[2019-06-26 05:42] LABS: CALCIUM 8.4 mg/dL (8.5-10.3); CREATININE 1.1 mg/dL (0.6-1.2)
[2019-06-26] MEDS ORDERED: LORazepam 0.5 MG TABLET PO PRN ×2 (08:32→11:51)
[2019-06-26] MEDS ORDERED: CLOPIDOGREL 75 MG TABLET PO SCH (09:00)
[2019-06-26] MEDS ORDERED: atenoloL 25 MG TABLET PO SCH (09:00)
[2019-06-26] MEDS ORDERED: ASPIRIN EC 81 MG TABLET PO SCH (09:00)
[2019-06-26] MEDS ORDERED: SODIUM CHLORIDE FLUSH 0.9% 10 ML SYRINGE IVP SCH (09:00)
[2019-06-26] MEDS ORDERED: SODIUM CHLORIDE 0.9% 1,000 ML IV SCH ×2 (12:00→14:39)
--- NOTE | 2019-06-26 12:59 | PHARMACY PROGRESS NOTE ---
- Best Possible Medication History Admit Date and Time: 06/26/19 0215 Processed by: Pharmacy Medication History completed: Yes Patient Interview: Completed Secondary Source(s): Insurance records As the person ultimately responsible for medication therapy, providers are able to order a medication from an existing home medication list in [facility] via the "Reconcile Routine" prior to Confirmation of that medication by office support associate. Such practice is discouraged except when the physician, in their clinical judgment, deems that a medical need exists for a medication without regard to previous use.
--- NOTE | 2019-06-26 14:40 | Discharge Plan ---
Discharge Plan Problem Reviewed?: Yes Disposition: Home, Self Care Condition: Stable Diet: Regular Activity Restrictions: Activity as Tolerated Shower Restrictions: No (fall precaution) Health Concerns: stroke Plan of Treatment: you report you have more symptoms on your right side of your body, you decline to have CT of brain. The CT of brain on last night was no acute or focal intracranial abnormality. The call is made to [place] neurologist who does not think you need to be transferred to [place] at this point, it is more likely somatic symptoms, you had similar complaints in [place]. You was d/c on 06/24/19 from [place]. You report you have normal urination and bowel movement. PT works with you today, you walked 250 feet without balance issue. PT recommended you have out-pt PT. Advise you followup your neurologist as out-pt in your schedule. Care Goals: stabilization and improvement of your medical conditions Assessment: discussed with you the test results, and care plan, and answer your questions. Additional Instructions or Follow Up instructions: you may followup your PCP, Grant Garcia, in one week, followup your neurologist as out-pt in your schedule. Should your symptoms return or worsen, you may present ER or call 911 for help. Follow-Up Care: Outpatient Rehab - PT No Smoking: If you smoke, Please STOP! Call for help. Follow-up with: Grant King MD [Physician No Access] -
--- NOTE | 2019-06-26 15:37 | DISCHARGE SUMMARY ---
Discharge Summary Admit Date: 06/26/19 Discharge Date: 06/26/19 Discharging Provider: CORBIN Primary Care Provider: Grant Dhaliwal Condition at Discharge: Stable Discharge Disposition: 01 Home, Self Care Discharge Facility Name: home - DIAGNOSES Admission Diagnoses: (1) TIA (transient ischemic attack) (2) Hypertension (3) Hyperlipidemia Discharge Diagnoses with Status of Each Condition: (1) TIA (transient ischemic attack) stable as his baseline. pt has face symmetrical, tongue midline, trace right arm weaker than left, and equal right lower extremity strength as left. pt slightly decreased timeliness with talking but there is no word-finding difficult or slurred speech observed. pt has normal sensations. These findings are similar to Dr. Herrera's, Dr. Snell's, Dr. Javed Dao's ([facility] d/c physician), PT's, and OT's assessment. PT/OT recommended pt can be d/c to home today with out-pt PT/OT. Pt thought his symptoms became worsening, he stated he has "more numbness and more weakness at the same location, I am going to ." then pt cried, and without reporting any new symptoms. pt present anxiety, subjectively overly focused and exacerbated his minor symptoms. I discussed with pt the care plan, we can provide other image study but he refused, he stated "all images studies shows nothing, I do not think more image study will show something." pt want he could be transferred by hospital by hospital to [place] because he thought he has more symptoms. I called Dr. Barillas, Neurologist in [place]. He state pt does not need to be transferred to [place]. He found pt's record. he said pt did have similar complaints in [place], and pt had twice MRI of brain, twice of CTA of brain with unremarkable acute findings. He asked if pt took meds as the schedule. I reported to him pt report he took meds as the schedule. pt took Aspirin, Plavix and statin in home as meds were ordered in hospital. CT of brain at this time in ER was unremarkable acute finding. pt request to be d/c home today. pt was d/c to home with the same meds [place] prescribed to him. (2) Hypertension stable (3) Hyperlipidemia stable (4) anxiety with somatic symptom pt did present anxiety with somatic complaint in hospital similar. Pt thought his symptoms became worsening, he stated he has "more numbness and more weakness at the same location, I am going to ." then pt cried. pt present anxiety, subjectively overly focused and exacerbated his minor symptoms. pt was prescribed PRN Ativan in hospital. pt requested to take once per nurse report, but pt decline to be prescribed Ativan to him for home (5)dehydration, mild pt had two liters of IVF of NS in ER. Pt's now creatinine is 1.1. pt's baseline creatinine was 1.2. pt was given IVF in hospital. - HPI History of Present Illness: refer from Dr. Snell's HPI on 06/26/19 Patient is a 59 y/o male with supposed Hx of paroxysmal Atrial fibrillation, hypertension and hyperlipidemia who presented to the ED with complain of right- sided numbness, weakness and dysarthria. This started around 7pm on 06/25/19 while they were having dinner. Just prior to dinner he noticed he was wobbly on his feet. Then at dinner he was having some difficulty holding his fork. He decided to go to bed after dinner and that was when he noticed the numbness and weakness was more prominent. Then he was having difficulty speaking. He reports getting emotional at this point because he felt helpless and like he was going to . His significant other called EMS. By the time EMS arrived his symptoms had improved somewhat. By the time the ambulance arrived the hospital he was close to his baseline. He was able to stand/ bear weight and walk un-aided. How ever he was slightly wobbly on his feet. He had presented to the ED on 06/21/19 with similar symptoms. At that time his symptoms had persisted for over an hour. After discussing with [place] neurology , he was administered TPA and flown to [place]. He was admitted to the ICU at [place]. The following day he was down-graded and transferred out of the ICU. He reports experiencing two episodes of similar symptoms as described above while admitted at [place]. He underwent 2 brain MRI's, 2 CTA of the head, a CTA neck and a TTE which showed a LVEF of 58%, normal left and right ventricular size and function. The images were largely unremarkable for an acute stroke, except for moderate dense scattered white matter disease most likely related to chronic small vessel ischemic disease. 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 Plan was for follow up with his PCP in 1 week and neurology in 2-3 weeks. At bedside he has slight residual weakness on the right side and has slight difficulty with [id number] test on the right. However he adds that this is close to his baseline upon discharge from [place]. He denied chest pain, dyspnea, abd pain, n/v/d, fever chills, headache, dizziness or double vision. Dr Nguyen Rose (neurologist) at [facility] was consulted by the ED physician and she advised observing the patient. He is being admitted for observation based on neurology's recommendation. - HOSPITAL COURSE Hospital Course: pt was admitted for TIA observation per Dr. Nguyen Rose, [place] Neurologist, recommended when pt was at ER. she recommended admission pt for observation overnight. she indicates that she would not make changes to the patient's medications. pt took Aspirin, Plavix and statin per [place] prescribed to pt. Pt had CT of head study in ER which was unremarkable acute findings. Pt had PT/OT evaluation and treatment. pt was recommended to be d/c home with out-pt PT. Per my assessment, pt is stable as his baseline. pt has face symmetrical, tongue midline, trace right arm weaker than left, and equal right lower extremity strength as left. pt slightly decreased timeliness with talking but there is no word-finding difficult or slurred speech observed. pt has normal sensations. pt thought he has "more numbness and more weakness at the same location, I am going to ." then pt cried. Pt refused to have further images in this hospital. Pt want to be transferred to [place]. I called , neurologist in [place]. he state pt does not need to be transferred to [place]. Pt had similar complaints in [place], pt had twice MRI and twice CTA studies in [place] recently. pt was just d/c on 06/24/19 from [place]. Then pt request to be d/c home today. He state he will drive to go to [place]. I explained to him [place] did not think he need to be transferred. I also advise pt, take his home meds as the schedule and followup neurologist as [place] scheduled for him. The detail hospital course is as the below. (1) TIA (transient ischemic attack) stable as his baseline. pt has face symmetrical, tongue midline, trace right arm weaker than left, and equal right lower extremity strength as left. pt slightly decreased timeliness with talking but there is no word-finding difficult or slurred speech observed. pt has normal sensations. These findings are similar to Dr. Herrera's, Dr. Snell's, Dr. Javed Dao's ([facility] d/c physician), PT's, and OT's assessment. PT/OT recommended pt can be d/c to home today with o ut-pt PT/OT. Pt thought his symptoms became worsening, he stated he has "more numbness and more weakness at the same location, I am going to ." then pt cried, and without reporting any new symptoms. pt present anxiety, subjectively overly focused and exacerbated his minor symptoms. I discussed with pt the care plan, we can provide other image study but he refused, he stated "all images studies shows nothing, I do not think more image study will show something." pt want he could be transferred by hospital by hospital to [place] because he thought he has more symptoms. I called Dr. Barillas, Neurologist in [place]. He state pt does not need to be transferred to [place]. He found pt's record. he said pt did have similar complaints in [place], and pt had twice MRI of brain, twice of CTA of brain with unremarkable acute findings. He asked if pt took meds as the schedule. I reported to him pt report he took meds as the schedule. pt took Aspirin, Plavix and statin in home as meds were ordered in hospital. CT of brain at this time in ER was unremarkable acute finding. pt request to be d/c home today. pt was d/c to home with the same meds [place] prescribed to him. (2) Hypertension stable (3) Hyperlipidemia stable (4) anxiety with somatic symptom pt did present anxiety with somatic complaint in hospital similar. Pt thought his symptoms became worsening, he stated he has "more numbness and more weakness at the same location, I am going to ." then pt cried. pt present anxiety, subjectively overly focused and exacerbated his minor symptoms. pt was prescribed PRN Ativan in hospital. pt requested to take once per nurse report, but pt decline to be prescribed Ativan to him for home (5)dehydration, mild pt had two liters of IVF of NS in ER. Pt's now creatinine is 1.1. pt's baseline creatinine was 1.2. pt was given IVF in hospital. - ALLERGIES Allergies/Adverse Reactions: Allergies Allergy/AdvReac Type Severity Reaction Status Date / Time No Known Drug Allergies Allergy Verified 06/21/19 15:08 - MEDICATIONS Home Medications: Ambulatory Orders Medication Instructions Recorded Confirmed Aspirin 81 mg PO DAILY 06/25/19 06/26/19 Atorvastatin [Lipitor] 40 mg PO DAILY 06/25/19 06/26/19 Clopidogrel [Plavix] 75 mg PO DAILY 06/25/19 06/26/19 atenoloL [Atenolol] 25 mg PO DAILY 06/26/19 06/26/19 - PHYSICAL EXAM AT DISCHARGE General Appearance: positive: No acute distress, Alert. negative: Lethargic Eyes Bilateral: positive: Normal inspection, PERRL, EOMI, No lid inflammation ENT: positive: ENT inspection nml, Pharynx nml, No signs of dehydration. negative: Purulent nasal drainage, Dry mucous membranes Neck: positive: Nml inspection, Thyroid nml, No JVD, Trachea midline. negative: Thyromegaly, Lymphadenopathy (R), Lymphadenopathy (L), Stiff neck, S welling/bruising, Tracheal deviation Respiratory: positive: Chest non-tender, No respiratory distress, Breath sounds nml. negative: Wheezes, Rales, Rhonchi Cardiovascular: positive: Regular rate & rhythm, No murmur, No gallop. negative: Irregularly irregular, Extrasystoles, Tachycardia, Bradycardia, JVD present, Systolic murmur, Diastolic murmur Peripheral Pulses: positive: 2+ Abdomen: positive: Non-tender, No organomegaly, Nml bowel sounds, No distention. negative: Tenderness, Guarding, Rebound Back: positive: Nml inspection. negative: CVA tenderness (R), CVA tenderness (L) Skin: positive: Color nml, No rash, Warm, Dry. negative: Cyanosis, Diaphoresis, Pallor Extremities: positive: Non-tender, Full ROM, Nml appearance, Other (trace right arm weaker than left). negative: No pedal edema, Calf tenderness, Joint swelling, Will's sign/cords Neurologic/Psychiatric: positive: Oriented x3, Motor nml, Sensation nml, Depressed mood/affect (pt present anxiety, subjectively overly focus and exacerbate his minor symptoms), Other (pt has face symmetrical, tongue midline, trace right arm weaker than left, and equal right lower extremity strength as left. pt slightly decreased timeliness with talking but there is no word-finding difficult or slurred speech observed. pt has normal sensations.). negative: Weakness, Sensory loss, Facial droop, Slurred/abnml speech - LABS Result Diagrams: 06/26/19 04:58 06/26/19 04:58 - DIAGNOSTIC IMAGING Diagnostic Imaging Results Comments: CT of head reveals on acute or focal intracranial abnormality - FOLLOW UP Follow Up: pt may followup his PCP Dr. Araya in one week, followup neurologist as the schedule. - TIME SPENT Time Spent in Discharge (Minutes): 60
[2019-06-26 15:54] VITALS: BP 163/93
[2019-06-26] MEDS ORDERED: ATORVASTATIN 40 MG TABLET PO SCH (21:00)
[2019-06-26] MEDS ORDERED: MONTELUKAST 10 MG TABLET PO SCH (21:00)
== END 2019-06-26 16:15 | disposition home or self-care (01) ==
LOC: EDUNIT# → ED 21:59 → MS2 06-26 02:15
PROVIDERS: ADMIT Internal Medicine; ATTEND Nurse Practitioner Gerontology
DX: R20.0 Anesthesia of skin (principal); R53.1 Weakness; R20.2 Paresthesia of skin; R47.1 Dysarthria and anarthria; R29.810 Facial weakness; F41.9 Anxiety disorder, unspecified; E86.0 Dehydration; F45.9 Somatoform disorder, unspecified; G46.7 Other lacunar syndromes; I10 Essential (primary) hypertension; E78.5 Hyperlipidemia, unspecified; Z79.82 Long term (current) use of aspirin; Z79.899 Other long term (current) drug therapy; Z79.01 Long term (current) use of anticoagulants; Z82.3 Family history of stroke
CPT/HCPCS: 36415; 70450; 80048; 80053; 81003; 83690; 84484; 85025; 85610; 93005; 96360; 96361; 97161; 97165; 99285; A9270; G0378; 81001; 87086

== ENCOUNTER 2019-07-15 01:40 | Outpatient (CLI) | payer OTHER | END 2019-07-15 01:41 | disposition critical access hospital (66) | LOC: EMS 01:40 | PROVIDERS: ATTEND Surgery | DX: R53.1 Weakness (principal); R03.1 Nonspecific low blood-pressure reading; R61 Generalized hyperhidrosis; R11.2 Nausea with vomiting, unspecified; R19.7 Diarrhea, unspecified | CPT/HCPCS: A0425; A0427 ==

== ENCOUNTER 2019-07-15 02:06 | Emergency (ER) | payer OTHER ==
[2019-07-15 02:43] LABS: BASOPHILS % (AUTO) 0.4 %; EOSINOPHILS # (AUTO) 0.2 10^3/uL (0.0-0.7); EOSINOPHILS % (AUTO) 2.1 %; HGB - HEMOGLOBIN 14.5 g/dL (14.0-18.0); LYMPHOCYTES # (AUTO) 1.1 10^3/uL (1.5-3.5); LYMPHOCYTES % (AUTO) 10.2 %; MEAN CORPUSCULAR HGB CONC 34.3 g/dL (32.0-36.0); MEAN CORPUSCULAR VOLUME 96.1 fL (80.0-94.0); MONOCYTES # (AUTO) 0.7 10^3/uL (0.0-1.0); MONOCYTES % (AUTO) 6.8 %; NEUTROPHILS # (AUTO) 8.6 10^3/uL (1.5-6.6); NEUTROPHILS % (AUTO) 80.1 %; PLT - PLATELET COUNT 252 10^3/uL (130-450); RED CELL DISTRIBUTION WIDTH 12.4 % (12.0-15.0); WHITE BLOOD COUNT 10.8 x10^3/uL (4.8-10.8)
[2019-07-15 02:58] LABS: ALBUMIN 3.9 g/dL (3.2-5.5); ALBUMIN/GLOBULIN RATIO 1.4 (1.0-2.2); BILIRUBIN,TOTAL 0.9 mg/dL (0.2-1.0); CALCIUM 8.5 mg/dL (8.5-10.3); CREATININE 1.2 mg/dL (0.6-1.2); TOTAL PROTEIN 6.7 g/dL (6.7-8.2)
--- NOTE | 2019-07-15 03:08 | ED Physician Documentation ---
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 blood pressure was measured and found to be 72/38. 911 called and bp was 90s SBP and he was already feeling improved. he notes that he took viagara tonight, and smoked marijuana and had edible marijuana. Review of Systems Constitutional: reports: Reviewed and negative Eyes: reports: Reviewed and negative Cardiac: reports: Reviewed and negative Respiratory: reports: Reviewed and negative GI: reports: Reviewed and negative : denies: Incontinent Neurologic: reports: Generalized weakness. denies: Focal weakness, Numbness, Altered mental status, Headache PD PAST MEDICAL HISTORY - Past Medical History Past Medical History: Yes Cardiovascular: Hypertension, High cholesterol, Atrial fibrillation Respiratory: None Neuro: CVA, Other Endocrine/Autoimmune: None GI: None : None Psych: None Derm: None - Past Surgical History Past Surgical History: Yes Ortho: Spine surgery, Other - Present Medications Home Medications: Ambulatory Orders Medication Instructions Recorded Confirmed Aspirin 81 mg PO DAILY 06/25/19 06/26/19 Atorvastatin [Lipitor] 40 mg PO DAILY 06/25/19 06/26/19 Clopidogrel [Plavix] 75 mg PO DAILY 06/25/19 06/26/19 atenoloL [Atenolol] 25 mg PO DAILY 06/26/19 06/26/19 - Allergies Allergies/Adverse Reactions: Allergies Allergy/AdvReac Type Severity Reaction Status Date / Time No Known Drug Allergies Allergy Verified 06/21/19 15:08 - Social History Does the pt smoke?: No Smoking Status: Never smoker - Immunizations Immunizations are current?: Yes - POLST Patient has POLST: No POLST Status: Full Code PD ED PE NORMAL - Vitals Vital signs reviewed: Yes - General General: Alert and oriented X 3, No acute distress, Well developed/nourished - HEENT HEENT: PERRL, EOMI, Moist mucous membranes - Neck Neck: Supple, no meningeal sign - Cardiac Cardiac: RRR, No murmur, No gallop, No rub - Respiratory Respiratory: No respiratory distress, Clear bilaterally - Abdomen Abdomen: Normal bowel sounds, Non tender - Derm Derm: Normal color, Warm and dry - Extremities Extremities: No edema - Neuro Neuro: Alert and oriented X 3 Eye Opening: Spontaneous Motor: Obeys Commands Verbal: Oriented GCS Score: 15 Results - Vitals Vitals: Oxygen O2 Source Room air Oxygen Flow Rate 2 - Labs Labs: Laboratory Tests 07/15/19 07/15/19 07/15/19 02:39 02:39 02:39 WBC 10.8 RBC 4.40 L Hgb 14.5 Hct 42.3 MCV 96.1 H MCH 33.0 H MCHC 34.3 RDW 12.4 Plt Count 252 MPV 10.0 Neut # (Auto) 8.6 H Lymph # (Auto) 1.1 L [place] # (Auto) 0.7 Eos # (Auto) 0.2 Baso # (Auto) 0.0 Absolute Nucleated RBC 0.00 Nucleated RBC % 0.0 Sodium 141 Potassium 3.5 Chloride 107 Carbon Dioxide 24 Anion Gap 10.0 BUN 20 Creatinine 1.2 Estimated GFR (MDRD) 62 L Glucose 144 H Calcium 8.5 Total Bilirubin 0.9 AST 48 H ALT 92 H Alkaline Phosphatase 65 Troponin I High Sens 3.2 Total Protein 6.7 Albumin 3.9 Globulin 2.8 Albumin/Globulin Ratio 1.4 Lipase 27 PD MEDICAL DECISION MAKING - ED course Complexity details: reviewed old records, reviewed results, re-evaluated patient, considered differential, d/w patient, d/w family Departure - Departure Disposition: Home, Self Care Clinical Impression: Hypotension Qualifiers: Hypotension type: unspecified hypotension type Qualified Code(s): I95.9 - Hypotension, unspecified Condition: Good Instructions: ED Hypotension All Causes Comments: Follow up with your primary care provider, call tomorrow morning to arrange for next available appointment. I strongly recommend that you avoid Viagra until and unless your doctor reevaluates you and clears you to use it; Viagra can cause low blood pressure and this might have caused or contributed to the problem tonight. I also recommend going back to the 25mg dose of cozaar: you indicated that your dose was recently doubled. Since your blood pressure was too low this morning, you should resume taking the previous, lower dose of cozaar. It is very important that you fallow up with your primary care physician. Discharge Date/Time: 07/15/19 05:30
[2019-07-15] MEDS ORDERED: SODIUM CHLORIDE 0.9% 1,000 ML IV STA (03:26)
[2019-07-15 05:04] VITALS: BP 105/71
== END 2019-07-15 05:30 | disposition home or self-care (01) ==
LOC: ED 02:06
DX: I95.9 Hypotension, unspecified (principal); I10 Essential (primary) hypertension
CPT/HCPCS: 36415; 80053; 83690; 84484; 85025; 93005; 96360; 99283

== ENCOUNTER 2020-06-25 22:47 | Outpatient (CLI) | payer OTHER | END 2020-06-25 22:48 | disposition critical access hospital (66) | LOC: EMS 22:47 | PROVIDERS: ATTEND Surgery | DX: R55 Syncope and collapse (principal) | CPT/HCPCS: A0425; A0429 ==

== ENCOUNTER 2020-06-25 23:17 | Emergency (ER) | payer OTHER ==
[2020-06-25] MEDS ORDERED: LACTATED RINGERS 1,000 ML IV STA (23:28)
--- NOTE | 2020-06-25 23:28 | ED Physician Documentation ---
PD HPI SYNCOPE - Stated complaint Stated Complaint: SYNCOPE - History obtained from History obtained from: Patient, Family, EMS (they found his BP low on their arrival, at 60 systolic, improved to 80s enroute and improving with IV fluids (briefly normotensive on a reading). Alert and conversant enroute.) - History of Present Illness Witnessed: Witnessed Timing - onset: How many hours ago (in the last half hour) Duration: Minutes Preceding symptoms: Diaphoresis, Abdominal pain, Nausea / vomiting, Light headed. No: Headache, Chest pain Associated symptoms: Nausea / vomiting. No: Chest pain, Palpitations Contributing factors: Noxious stimulae (he says he was feeling well earlier and through the day. Normal fluids and medications. Had 2 edibles 2 hours prior and started feeling onset of some nausea, cramping lower abd pain and had a loose BM. At which time he started to feel lightheaded, sweaty. Reportedly had brief LOC. Still weak.). No: Recent med change, Just stood up Similar symptoms before: No diagnosis (he states he had a similar symptoms/near syncope with an edible in the past, but not consistently with them.) Review of Systems Constitutional: denies: Fever Nose: denies: Rhinorrhea / runny nose, Congestion Throat: denies: Sore throat Cardiac: denies: Chest pain / pressure, Palpitations Respiratory: denies: Dyspnea, Cough GI: reports: Abdominal Pain (cramping lower abd preceding the lightheaded feeling.), Nausea, Diarrhea (single loose stool just prior to onset of lightheaded). denies: Bloody / black stool : denies: Dysuria, Frequency Skin: denies: Rash Neurologic: reports: Generalized weakness, Near syncope, Syncope (brief). denies: Focal weakness, Numbness, Headache PD PAST MEDICAL HISTORY - Past Medical History Cardiovascular: Hypertension, High cholesterol, Atrial fibrillation Respiratory: None Neuro: CVA, Other Endocrine/Autoimmune: None GI: None : None Psych: None Derm: None - Past Surgical History Past Surgical History: Yes Ortho: Spine surgery, Other - Present Medications Home Medications: Ambulatory Orders Medication Instructions Recorded Confirmed Aspirin 81 mg PO DAILY 06/25/19 06/26/19 Atorvastatin [Lipitor] 40 mg PO DAILY 06/25/19 06/26/19 Clopidogrel [Plavix] 75 mg PO DAILY 06/25/19 06/26/19 atenoloL [Atenolol] 25 mg PO DAILY 06/26/19 06/26/19 Lisinopril/Hydrochlorothiazide 1 each PO 06/25/20 [Zestoretic 10-12.5 mg Tablet] amLODIPine [Norvasc] 06/25/20 06/25/20 - Allergies Allergies/Adverse Reactions: Allergies Allergy/AdvReac Type Severity Reaction Status Date / Time No Known Drug Allergies Allergy Verified 06/25/20 23:27 - Social History Does the pt smoke?: No Smoking Status: Never smoker - Immunizations Immunizations are current?: Yes - POLST Patient has POLST: No POLST Status: Full Code PD ED PE NORMAL - Vitals Vital signs reviewed: Yes - General General: Alert and oriented X 3, No acute distress, Well developed/nourished - HEENT HEENT: Pharynx benign. No: Moist mucous membranes - Neck Neck: Supple, no meningeal sign, No adenopathy - Cardiac Cardiac: RRR, No murmur - Respiratory Respiratory: Clear bilaterally - Abdomen Abdomen: Normal bowel sounds, Soft, Non tender - Back Back: No CVA TTP - Derm Derm: Normal color, Warm and dry - Extremities Extremities: No tenderness to palpate, No edema, No calf tenderness / cord - Neuro Neuro: Alert and oriented X 3, No motor deficit, Normal speech Eye Opening: Spontaneous Motor: Obeys Commands Verbal: Oriented GCS Score: 15 - Psych Psych: Normal mood Results - Vitals Vitals: Vital Signs - 24 hr 06/25/20 06/25/20 06/26/20 23:22 23:29 00:39 Temperature 36 C L 36 C L Heart Rate 63 63 69 Respiratory 18 18 18 Rate Blood Pressure 121/76 121/76 113/69 O2 Saturation 97 97 98 Oxygen O2 Source Room air - EKG (time done) 23:29 Rate: Rate (enter#) (62) Rhythm: NSR [place]: Normal Intervals: Normal IA QRS: Normal Ischemia: Normal ST segments. No: ST elevation c/w ischemia, ST depression - Labs Labs: Laboratory Tests 06/25/20 06/25/20 06/25/20 22:47 22:47 22:47 WBC 8.9 RBC 4.65 L Hgb 15.0 Hct 44.4 MCV 95.5 H MCH 32.3 H MCHC 33.8 RDW 12.4 Plt Count 236 MPV 9.8 Neut # (Auto) 6.9 H Lymph # (Auto) 1.1 L [place] # (Auto) 0.6 Eos # (Auto) 0.2 Baso # (Auto) 0.0 Absolute Nucleated RBC 0.00 Nucleated RBC % 0.0 Sodium 137 Potassium 3.7 Chloride 98 L Carbon Dioxide 28 Anion Gap 11.0 BUN 25 H Creatinine 2.0 H Estimated GFR (MDRD) 34 L Glucose 115 H Calcium 8.8 Magnesium 2.1 Total Bilirubin 0.7 AST 24 ALT 32 Alkaline Phosphatase 64 Troponin I High Sens 3.5 Total Protein 7.4 Albumin 4.2 Globulin 3.2 Albumin/Globulin Ratio 1.3 PD MEDICAL DECISION MAKING - ED course Complexity details: re-evaluated patient (still feeling well and maintains normal BP here in ER. Presume vasovagal with the abd cramps and loose stool. ), considered differential (seems vasovagal syncope with transient hypotension and is feeling okay with some fluids and maintains normal BP while here. ), d/w patient Departure - Departure Disposition: 01 Home, Self Care Clinical Impression: Transient hypotension, Side effect of drug Syncope Qualifiers: Syncope type: vasovagal syncope Qualified Code(s): R55 - Syncope and collapse Condition: Stable Record reviewed to determine appropriate education?: Yes Instructions: ED Syncope Vasovagal Comments: Stay well-hydrated. I would suggest holding your amlodipine tomorrow to ensure you are feeling okay and not lightheaded; other medications as usual. Resume the amlodipine with your other medicines the following day if you are feeling well. Discharge Date/Time: 06/26/20 00:39
[2020-06-25 23:54] LABS: BASOPHILS % (AUTO) 0.3 %; EOSINOPHILS # (AUTO) 0.2 10^3/uL (0.0-0.7); EOSINOPHILS % (AUTO) 1.8 %; LYMPHOCYTES # (AUTO) 1.1 10^3/uL (1.5-3.5); LYMPHOCYTES % (AUTO) 12.6 %; MEAN CORPUSCULAR HEMOGLOBIN 32.3 pg (27.0-31.0); MEAN CORPUSCULAR HGB CONC 33.8 g/dL (32.0-36.0); MEAN CORPUSCULAR VOLUME 95.5 fL (80.0-94.0); MEAN PLATELET VOLUME 9.8 fL (7.4-11.4); MONOCYTES # (AUTO) 0.6 10^3/uL (0.0-1.0); MONOCYTES % (AUTO) 6.7 %; NEUTROPHILS # (AUTO) 6.9 10^3/uL (1.5-6.6); NEUTROPHILS % (AUTO) 78.3 %; PLT - PLATELET COUNT 236 10^3/uL (130-450); RED BLOOD COUNT 4.65 10^6/uL (4.70-6.10); RED CELL DISTRIBUTION WIDTH 12.4 % (12.0-15.0); WHITE BLOOD COUNT 8.9 x10^3/uL (4.8-10.8)
[2020-06-26 00:06] LABS: ALBUMIN 4.2 g/dL (3.2-5.5); ALBUMIN/GLOBULIN RATIO 1.3 (1.0-2.2); BILIRUBIN,TOTAL 0.7 mg/dL (0.2-1.0); CALCIUM 8.8 mg/dL (8.5-10.3); MAGNESIUM 2.1 mg/dL (1.7-2.8); TOTAL PROTEIN 7.4 g/dL (6.7-8.2)
[2020-06-26 00:40] VITALS: BP 113/69
== END 2020-06-26 00:39 | disposition home or self-care (01) ==
LOC: ED 23:17
DX: R55 Syncope and collapse (principal); I95.2 Hypotension due to drugs; R11.2 Nausea with vomiting, unspecified; R19.7 Diarrhea, unspecified; I10 Essential (primary) hypertension; Z86.73 Personal history of transient ischemic attack (TIA), and cerebral infarction without residual deficits; Z79.02 Long term (current) use of antithrombotics/antiplatelets; Z79.82 Long term (current) use of aspirin
CPT/HCPCS: 36415; 80053; 83735; 84484; 85025; 93005; 96360; 99283; 99284; J7120

== ENCOUNTER 2020-08-25 22:26 | Outpatient (CLI) | payer OTHER | END 2020-08-25 22:27 | disposition critical access hospital (66) | LOC: EMS 22:26 | PROVIDERS: ATTEND Emergency Medicine | DX: R07.89 Other chest pain (principal) | CPT/HCPCS: A0425; A0429 ==

== ENCOUNTER 2020-08-25 22:50 | Emergency (ER) | payer OTHER ==
--- NOTE | 2020-08-25 23:03 | ED Physician Documentation ---
PD HPI CHEST PAIN - Stated complaint Stated Complaint: CP - Chief complaint Chief Complaint: Cardiac - History obtained from History obtained from: Patient, EMS - History of Present Illness Timing - onset: Enter time (22:00), Today Timing - onset during: Rest Timing - details: Abrupt onset Pain level now: 6 Quality: Pain Location: Substernal Radiation: Other (no radiation) Worsened by: Other (no exacerbating factors) Associated symptoms: Diaphoresis, Nausea. No: Shortness of air Similar symptoms before: Has not had sx before Recently seen: Not recently seen - Additional information Additional information: BIBA. at approximately 10 pm tonight, patient was sitting at home watching TV and eating ice cream when he had midline substernal chest pain associated with diaphoresis and nausea. pain was 7/10. EMS gave patient one 0.4mg SLNTG, patient already had taken four 81mg ASA. Pain is 1/10 by the time of this evaluation. He says he had a normal stress test approximately 2 years ago. Review of Systems Constitutional: reports: Sweats. denies: Fever, Chills Cardiac: reports: Chest pain / pressure. denies: Palpitations, Pedal edema, Calf pain Respiratory: reports: Reviewed and negative GI: reports: Nausea. denies: Abdominal Pain, Vomiting Musculoskeletal: denies: Extremity swelling Neurologic: reports: Other (mild slurred speech and mild ataxic gait due to CVA (no new neurologic symptoms)) PD PAST MEDICAL HISTORY - Past Medical History Cardiovascular: Hypertension, High cholesterol, Atrial fibrillation Respiratory: None Neuro: CVA, Other Endocrine/Autoimmune: None GI: None : None Psych: None Derm: None - Past Surgical History Past Surgical History: Yes Ortho: Spine surgery, Other - Present Medications Home Medications: Ambulatory Orders Medication Instructions Recorded Confirmed Clopidogrel [Plavix] 75 mg PO DAILY 06/25/19 08/25/20 amLODIPine [Norvasc] 10 mg PO DAILY 06/25/20 08/25/20 Pravastatin [Pravachol] 30 mg PO DAILY 08/25/20 08/25/20 hydroCHLOROthiazide 50 mg PO DAILY 08/25/20 08/25/20 [Hydrochlorothiazide] - Allergies Allergies/Adverse Reactions: Allergies Allergy/AdvReac Type Severity Reaction Status Date / Time losartan Allergy Itching Verified 08/25/20 22:59 spironolactone Allergy Rash Verified 08/25/20 22:59 atorvastatin AdvReac Cramps Verified 08/25/20 22:59 lisinopril AdvReac Unknown Verified 08/25/20 22:59 - Social History Does the pt smoke?: No Smoking Status: Never smoker - Immunizations Immunizations are current?: Yes - POLST Patient has POLST: No POLST Status: Full Code PD ED PE NORMAL - Vitals Vital signs reviewed: Yes - General General: Alert and oriented X 3, No acute distress, Well developed/nourished - HEENT HEENT: Moist mucous membranes - Neck Neck: Supple, no meningeal sign - Cardiac Cardiac: RRR, No murmur, No gallop, No rub - Respiratory Respiratory: No respiratory distress, Clear bilaterally - Abdomen Abdomen: Soft, Non tender - Derm Derm: Normal color, Warm and dry - Extremities Extremities: No edema Results - Vitals Vitals: Vital Signs - 24 hr 08/25/20 08/25/20 08/25/20 22:51 22:57 23:27 Temperature 36.5 C Heart Rate 57 L 58 L 58 L Respiratory 20 20 16 Rate Blood Pressure 123/78 109/73 119/73 O2 Saturation 99 98 99 08/25/20 08/26/20 08/26/20 23:30 00:00 00:30 Temperature Heart Rate 62 60 59 L Respiratory 22 21 20 Rate Blood Pressure 119/73 118/67 115/71 O2 Saturation 99 98 97 08/26/20 01:00 Temperature 36.5 C Heart Rate 61 Respiratory 18 Rate Blood Pressure 121/68 O2 Saturation 97 Oxygen O2 Source Room air - EKG (time done) No standard instances Rate: Rate (enter#) (61) Rhythm: NSR [place]: LAD Intervals: Prolonged DC QRS: Normal Ischemia: Normal ST segments - Labs Labs: Laboratory Tests 08/25/20 08/25/20 08/25/20 23:06 23:06 23:06 WBC 7.0 RBC 4.63 L Hgb 15.0 Hct 43.6 MCV 94.2 H MCH 32.4 H MCHC 34.4 RDW 12.4 Plt Count 248 MPV 9.3 Neut # (Auto) 3.8 Lymph # (Auto) 2.0 [place] # (Auto) 0.8 Eos # (Auto) 0.4 Baso # (Auto) 0.0 Absolute Nucleated RBC 0.00 Nucleated RBC % 0.0 Sodium 136 Potassium 3.4 L Chloride 99 L Carbon Dioxide 27 Anion Gap 10.0 BUN 14 Creatinine 1.2 Estimated GFR (MDRD) 61 L Glucose 132 H Calcium 8.7 Total Bilirubin 0.7 AST 25 ALT 32 Alkaline Phosphatase 67 Troponin I High Sens 3.0 Total Protein 6.8 Albumin 4.0 Globulin 2.8 Albumin/Globulin Ratio 1.4 Lipase 33 - Rads (name of study) chest xray Radiology: Prelim report reviewed, See rad report PD MEDICAL DECISION MAKING - ED course Complexity details: reviewed results, re-evaluated patient, considered differential, d/w patient ED course: asymptomatic shortly after ED arrival and symptoms did not recur for remainder of ED observation. reassuring tests including normal high sensitivity troponin, unremarkable cxr, and no acute / concerning findings on EKG. Advised to return if worse but follow up with PMD next available appointment even if symptoms do not recur. Departure - Departure Disposition: 01 Home, Self Care Clinical Impression: Chest pain Condition: Good Instructions: ED Chest Pain Atypical Unkn Cause Comments: Follow up with your primary care provider. Further testing might be indicated. Discharge Date/Time: 08/26/20 01:20
[2020-08-25 23:19] LABS: BASOPHILS % (AUTO) 0.6 %; EOSINOPHILS # (AUTO) 0.4 10^3/uL (0.0-0.7); EOSINOPHILS % (AUTO) 5.6 %; MEAN CORPUSCULAR HEMOGLOBIN 32.4 pg (27.0-31.0); MEAN CORPUSCULAR HGB CONC 34.4 g/dL (32.0-36.0); MEAN CORPUSCULAR VOLUME 94.2 fL (80.0-94.0); MEAN PLATELET VOLUME 9.3 fL (7.4-11.4); MONOCYTES # (AUTO) 0.8 10^3/uL (0.0-1.0); MONOCYTES % (AUTO) 10.7 %; NEUTROPHILS # (AUTO) 3.8 10^3/uL (1.5-6.6); NEUTROPHILS % (AUTO) 54.8 %; PLT - PLATELET COUNT 248 10^3/uL (130-450); RED BLOOD COUNT 4.63 10^6/uL (4.70-6.10); RED CELL DISTRIBUTION WIDTH 12.4 % (12.0-15.0)
[2020-08-26 00:16] LABS: ALBUMIN/GLOBULIN RATIO 1.4 (1.0-2.2); BILIRUBIN,TOTAL 0.7 mg/dL (0.2-1.0); CALCIUM 8.7 mg/dL (8.5-10.3); CREATININE 1.2 mg/dL (0.6-1.2); TOTAL PROTEIN 6.8 g/dL (6.7-8.2)
[2020-08-26 01:04] VITALS: BP 121/68
--- NOTE | 2020-08-26 09:09 | XRAY Report ---
PROCEDURE: Chest 1 View X-Ray INDICATIONS: Chest pain TECHNIQUE: One view of the chest was acquired. COMPARISON: None. FINDINGS: Surgical changes and devices: Partially visualized surgical hardware from anterior cervical fusion. Lungs and pleura: No pleural effusions or pneumothorax. Lungs are clear. Mediastinum: Mediastinal contours appear normal. Heart size is normal. Bones and chest wall: No suspicious bony lesions. Overlying soft tissues appear unremarkable. IMPRESSION: Chest without acute cardiopulmonary abnormalities. No significant discrepancy with initial interpretation by overnight radiologist. Reviewed by: Eddie Barragan MD on 08/26/2020 9:07 AM PST Approved by: Eddie Barragan MD on 08/26/2020 9:07 AM [facility] Station ID: [id number]
== END 2020-08-26 01:20 | disposition home or self-care (01) ==
LOC: EDUNIT# → ED 22:50
DX: R07.89 Other chest pain (principal); R11.0 Nausea; I44.0 Atrioventricular block, first degree; I10 Essential (primary) hypertension; I69.393 Ataxia following cerebral infarction; I69.328 Other speech and language deficits following cerebral infarction; Z79.02 Long term (current) use of antithrombotics/antiplatelets
CPT/HCPCS: 36415; 80053; 83690; 84484; 85025; 93005; 99284

== ENCOUNTER 2023-08-05 23:02 | Emergency (ER) | payer MEDICARE, OTHER ==
--- NOTE | 2023-08-06 00:03 | ED Physician Documentation ---
PD HPI CHEST PAIN - Stated complaint Stated Complaint: CHEST PX - Chief complaint Chief Complaint: Cardiac - History obtained from History obtained from: Patient - Additional information Additional information: HPI from patient. Patient complains of midline chest pain. This started approximately 2 days ago, waxing and waning without exacerbating or ameliorating factors. Pain does not radiate. There was no inciting event. The patient says that he was started on chlorthalidone 8 days ago for high blood pressure. 2 days ago, he developed the chest pain as well as a sore throat. Because he had started the chlorthalidone recently, he thought the sore throat and chest pain might be due to the new medication and thus he stopped the chlorthalidone 2 days ago. He says the sore throat has resolved, but the chest pain has persisted and this is his chief complaint/concern at this time. He does not offer shortness of breath as part of chief complaint, but on review of systems he does note mild shortness of breath over the past 2 days. He denies fever, cough, leg swelling. Review of Systems Constitutional: denies: Fever, Chills, Sweats PD PAST MEDICAL HISTORY - Past Medical History Past Medical History: Yes Cardiovascular: Hypertension, High cholesterol, Atrial fibrillation Respiratory: None Neuro: CVA, Other Endocrine/Autoimmune: None GI: None : None Psych: None Derm: None - Past Surgical History Past Surgical History: Yes Ortho: Spine surgery, Other - Present Medications Home Medications: Ambulatory Orders Medication Instructions Recorded Confirmed Clopidogrel [Plavix] 75 mg PO DAILY 06/25/19 08/25/20 amLODIPine [Norvasc] 10 mg PO DAILY 06/25/20 08/25/20 Pravastatin [Pravachol] 30 mg PO DAILY 08/25/20 08/25/20 hydroCHLOROthiazide 50 mg PO DAILY 08/25/20 08/25/20 [Hydrochlorothiazide] - Allergies Allergies/Adverse Reactions: Allergies Allergy/AdvReac Type Severity Reaction Status Date / Time losartan Allergy Itching Verified 08/05/23 23:06 spironolactone Allergy Rash Verified 08/05/23 23:06 atorvastatin AdvReac Cramps Verified 08/05/23 23:06 lisinopril AdvReac Unknown Verified 08/05/23 23:06 - Social History Does the pt smoke?: No Smoking Status: Never smoker Does the pt drink ETOH?: No Does the pt have substance abuse?: No - Immunizations Immunizations are current?: Yes - POLST Patient has POLST: No POLST Status: Full Code PD ED PE NORMAL - Vitals Vital signs reviewed: Yes - General General: Alert and oriented X 3, No acute distress, Well developed/nourished - HEENT HEENT: Moist mucous membranes, Pharynx benign - Cardiac Cardiac: RRR, No murmur, No gallop, No rub - Respiratory Respiratory: No respiratory distress, Clear bilaterally - Abdomen Abdomen: Soft, Non tender Results - Vitals Vitals: Oxygen O2 Source Room air - EKG (time done) No standard instances EKG releavant findings:: EKG personally interpreted by author of this note. Relevant findings are: Rate: Rate (enter#) (74) Rhythm: NSR [place]: LAD Intervals: Normal [place] QRS: Normal Ischemia: Normal ST segments - Labs Labs: Laboratory Tests 08/05/23 08/05/23 08/05/23 23:18 23:18 23:18 WBC 7.5 RBC 4.97 Hgb 15.8 Hct 47.4 MCV 95.4 H MCH 31.8 H MCHC 33.3 RDW 13.0 Plt Count 270 MPV 10.3 Neut # (Auto) 4.3 Lymph # (Auto) 1.8 [place] # (Auto) 0.9 Eos # (Auto) 0.4 Baso # (Auto) 0.1 Absolute Nucleated RBC 0.00 Nucleated RBC % 0.0 Sodium 138 Potassium 3.9 Chloride 102 Carbon Dioxide 27 Anion Gap 9.0 BUN 25 H Creatinine 1.3 Estimated GFR (MDRD) 55 L Glucose 99 Calcium 9.9 Total Bilirubin 0.4 AST 21 ALT 20 Alkaline Phosphatase 73 Troponin I High Sens 3.4 Total Protein 7.8 Albumin 4.2 Globulin 3.6 Albumin/Globulin Ratio 1.2 Lipase 33 - Rads (name of study) CXR Relevant Findings:: Prelim report reviewed, See rad report CTA chest (PE study) Relevant Findings:: Prelim report reviewed, See rad report PD Medical Decision Making - ED course Complexity details: reviewed results, re-evaluated patient, considered differential, d/w patient ED course: Unremarkable CBC, ER abdominal panel. Normal high-sensitivity troponin (3.4). Unremarkable chest x-ray, no concerning findings on EKG. I discussed these results with the patient. He is not in any obvious distress including no respiratory distress. Despite this, his on this reevaluation I do note his pulse oximetry is in the lower 90s, with ranges from (briefly) 89 to 94%. The waveform is consistent with a strong pleth that correlates with his pulse. At this point, we discussed further testing, specifically CTA of the chest to assess for possible PE. He is agreeable to this study. The radiologist's interpretation of the CTA of the chest is no PE, but ascending aortic aneurysm is noted measuring 4 cm. Radiologist reading also notes small pericardial effusion "There is mild fat stranding within the mediastinal fat fluid [sic] versus inflammatory process cannot be excluded. CTA thoracic aorta with and without contrast may be of further diagnostic value." I contacted [facility] radiology for clarification of the reading regarding the mediastinal finding as well as whether the CTA of the thoracic aorta is a recommendation in the outpatient setting versus emergent. I spoke with Dr. Medel (different radiologist from the one who made the initial/preliminary reading). He reviewed the images and his interpretation is also no pulmonary embolism but "mid ascending thoracic aortic ectasia" (his interpretation does include measurement of ascending aortic diameter of 4.0 x 3.9 cm but he does not feel this is tantamount to aneurysm). He does not appreciate a pericardial effusion. He does not see fat stranding nor any other abnormalities in the mediastinum and thus is not sure what the initial radiologist reading/interpretation is referring to regarding the mediastinal abnormalities as noted above. Lastly, he does not feel CTA of the thoracic aorta is needed from an emergent standpoint. I discussed these results with the patient and with his daughter (in ED at patient's bedside), including the initial reading of the CT scan as well as the re-read. I explained that both radiologist agree that there is no evidence of PE, but both radiologist agree on the diameter of the ascending aorta but the differing interpretation as to ectasia vs aneurysm. I further explained that in either interpretation, it is still in the patient's best interest to seek follow-up with his primary care provider soon as can be arranged for reevaluation of this abnormality and, at the PCPs discretion, further study. The patient is in NAD, but says he is still having some chest discomfort and asks about pain medication for this. He is given 4 mg morphine sulfate IV, and I am providing him with a take-home pack of Percocet to use if the morphine does not adequately control his pain. Return precautions were very carefully reviewed with this patient and his daughter, and I emphasized to them that the patient should have a low threshold for return to the ED. Departure - Departure Disposition: 01 Home, Self Care Clinical Impression: Chest pain Qualifiers: Chest pain type: unspecified Qualified Code(s): R07.9 - Chest pain, unspecified Condition: Good Instructions: ED Chest Pain Atypical Unkn Cause Comments: There were no concerning nor diagnostic findings on tonight's tests including the blood tests, EKG, chest x-ray, and the CT scan of your chest. As we discussed, the initial interpretation by the radiologist of the CT scan of your chest was an aneurysm of your ascending thoracic aorta; an aneurysm is an artery with an abnormally large diameter. The initial interpretation by the radiologist also included a comment that another CT scan with contrast (narrowing down the area of study to the aorta) might provide further information regarding the aneurysm. I contacted the radiology service and was put in touch with a different radiologist in the group that is reading the overnight CT scans. His interpretation of the CT scan is that the aorta measurement is not quite large enough to be suggestive of an aneurysm and thus his interpretation is ascending thoracic aortic ectasia (ectasia implies abnormal diameter of the aorta but not enough to be labelled aneurysm). Both radiologist agree that there is no evidence of pulmonary embolism (blood clot in the lung(s)), and both agree that the ascending aorta measures up to 4.0 cm in diameter. I recommend following up with your primary care provider for reevaluation of your symptoms (chest pain, shortness of breath) as well as review of the CT scan findings. Discharge Date/Time: 08/06/23 06:49
[2023-08-06 00:44] LABS: BASOPHILS # (AUTO) 0.1 10^3/uL (0.0-0.1); BASOPHILS % (AUTO) 0.7 %; EOSINOPHILS # (AUTO) 0.4 10^3/uL (0.0-0.7); EOSINOPHILS % (AUTO) 4.8 %; HCT - HEMATOCRIT 47.4 % (42.0-52.0); HGB - HEMOGLOBIN 15.8 g/dL (14.0-18.0); LYMPHOCYTES # (AUTO) 1.8 10^3/uL (1.5-3.5); LYMPHOCYTES % (AUTO) 24.6 %; MEAN CORPUSCULAR HEMOGLOBIN 31.8 pg (27.0-31.0); MEAN CORPUSCULAR HGB CONC 33.3 g/dL (32.0-36.0); MEAN CORPUSCULAR VOLUME 95.4 fL (80.0-94.0); MEAN PLATELET VOLUME 10.3 fL (7.4-11.4); MONOCYTES # (AUTO) 0.9 10^3/uL (0.0-1.0); MONOCYTES % (AUTO) 12.3 %; NEUTROPHILS # (AUTO) 4.3 10^3/uL (1.5-6.6); NEUTROPHILS % (AUTO) 57.5 %; PLT - PLATELET COUNT 270 10^3/uL (130-450); RED BLOOD COUNT 4.97 10^6/uL (4.70-6.10); WHITE BLOOD COUNT 7.5 x10^3/uL (4.8-10.8)
--- NOTE | 2023-08-06 01:02 | XRAY Report ---
PROCEDURE: Chest 2V INDICATIONS: chest pain TECHNIQUE: 2 views of the chest were acquired. COMPARISON: None. FINDINGS: Surgical changes and devices: Surgical fusion of the lower cervical spine. Lungs and pleura: No pleural effusions or pneumothorax. Lungs are clear. Mediastinum: Mediastinal contours appear normal. Heart size is normal. Bones and chest wall: No suspicious bony lesions. Overlying soft tissues appear unremarkable. IMPRESSION: No acute cardiopulmonary process. Reviewed by: Kirit Galloway MD on 08/06/2023 1:01 AM [facility] Approved by: Kirit Galloway MD on 08/06/2023 1:01 AM [facility] Station ID: [id number]
[2023-08-06 01:27] LABS: ALBUMIN 4.2 g/dL (3.2-5.5); ALBUMIN/GLOBULIN RATIO 1.2 (1.0-2.2); BILIRUBIN,TOTAL 0.4 mg/dL (0.2-1.0); CALCIUM 9.9 mg/dL (8.5-10.3); CREATININE 1.3 mg/dL (0.6-1.3); POTASSIUM 3.9 mmol/L (3.5-4.5); TOTAL PROTEIN 7.8 g/dL (6.4-8.9)
[2023-08-06 01:59] VITALS: O2SAT 92
[2023-08-06] MEDS ORDERED: iohexoL-300 100 ML VIAL ONE (02:13)
[2023-08-06] MEDS: iohexoL-300 100 ML VIAL IVP ONE (02:47)
--- NOTE | 2023-08-06 05:17 | CT Report ---
PROCEDURE: Angio Chest INDICATIONS: chest pain, mild hypoxia CONTRAST: 100 ML OMNI 300 TECHNIQUE: After the administration of intravenous contrast, 2 mm axial images were acquired from the pulmonary apices to the posterior costophrenic angles during the arterial phase. In addition, 1 mm lung kernel and 5 mm soft tissue kernel reconstructions were performed. 3-dimensional coronal oblique maximum int ensity projection (MIP) reformats, 8 mm axial MIP, and 5 mm coronal and sagittal MPR reformats were t hen performed through the thorax. For radiation dose reduction, the following was used: automated exp osure control, adjustment of mA and/or kV according to patient size. COMPARISON: Chest x-ray, 08/06/2023. FINDINGS: Image quality: Excellent. Large vessels: No filling defects within the opacified pulmonary arteries, accounting for motion and contrast timing. No evidence of acute aortic syndrome or aortic aneurysm. Lungs and pleura: No consolidation. No pleural effusions. No pneumothorax. No suspicious pulmonary n odules which require follow up. Mediastinum: Heart size is normal. No pericardial effusion. The ascending aorta is ectatic measuring 4.0 x 3.9 cm. No mediastinal adenopathy by size criteria. Chest wall and lower neck: Thyroid is unremarkable. No axillary or supraclavicular adenopathy by size . Bones: No aggressive osseous abnormality. Upper Abdomen: Unremarkable. IMPRESSION: 1. No pulmonary embolus. 2. Mild ascending thoracic aortic ectasia. No significant discrepancy with the preliminary interpretation. Reviewed by: Lexi Medel MD on 08/06/2023 5:15 AM [facility] Approved by: Lexi Medel MD on 08/06/2023 5:15 AM PST Station ID: [id number]
[2023-08-06] MEDS: MORPHINE 2 MG/ML CARPUJECT IVP STA (06:28)
[2023-08-06] MEDS: oxyCODONE/ACET 5/325 Prepack 4 PO STA (06:31)
[2023-08-06 06:44] VITALS: BP 130/83
== END 2023-08-06 06:49 | disposition home or self-care (01) ==
LOC: ED 23:02
DX: R07.9 Chest pain, unspecified (principal); I10 Essential (primary) hypertension; E78.00 Pure hypercholesterolemia, unspecified; I48.91 Unspecified atrial fibrillation; Z86.73 Personal history of transient ischemic attack (TIA), and cerebral infarction without residual deficits; Z79.02 Long term (current) use of antithrombotics/antiplatelets; Z79.899 Other long term (current) drug therapy
CPT/HCPCS: 36415; 71046; 71275; 80053; 83690; 84484; 85025; 93005; 96374; 99284; Q9967